=== PATIENT | female | born 1995 | race Caucasian/White ===

== ENCOUNTER 2021-03-29 10:58 | Emergency (ER) | payer MEDICAID ==
[~2021-03-29] VITALS: Ht 175.3 cm; Wt 79.5 kg
[~2021-03-29 10:58] MED LIST: GUAI1TBM19 PO; ONDA8TAB9 PO
[2021-03-29] MEDS ORDERED: ondansetron/PF 4mg/2ml inj IV ONE (11:15)
[2021-03-29] MEDS ORDERED: normal saline 1000ML IV soln IVB ONE (11:15)
[2021-03-29 11:16] VITALS: BP 127/89
[2021-03-29 12:21] LABS: URINE HCG NEGATIVE (NEG)
[2021-03-29 12:22] LABS: CLARITY,URINE SLIGHTLY CLOUDY (Clear); COLOR,URINE YELLOW (Yellow); UA COLLECTION TYPE CLN CATCH MIDSTREAM
[2021-03-29 12:23] LABS: GLUCOSE, URINE NEGATIVE (Neg); KETONES,URINE NEGATIVE (Neg); LEUKOCYTE ESTERASE ,URINE NEGATIVE (Neg); NITRITES, URINE NEGATIVE (Neg); OCCULT BLOOD,URINE NEGATIVE (Neg); PROTEIN,URINE NEGATIVE (Neg); UROBILINOGEN,URINE 0.2 E.U/dL (0.2-1.0)
[2021-03-29 12:32] LABS: MUCUS STRANDS MANY /LPF (Neg); SQUAMOUS EPITHELIAL CELL,UR MANY /LPF (FEW)
[2021-03-29 12:34] LABS: BACTERIA,URINE 1+ /HPF (Neg); RBC,URINE 0-2 /HPF (0-2); WBC,URINE 0-4 /HPF (0-4)
== END 2021-03-29 12:02 | disposition left against medical advice (07) ==
LOC: ER 10:59
DX: R10.10 Upper abdominal pain, unspecified (principal); Z53.21 Procedure and treatment not carried out due to patient leaving prior to being seen by health care provider
CPT/HCPCS: 81001; 81025

== ENCOUNTER 2023-12-23 01:47 | Emergency (ER) | payer MEDICAID ==
[~2023-12-23] VITALS: Ht 175.3 cm; Wt 82.0 kg
[2023-12-23 01:50] VITALS: PULSE 92
[2023-12-23] MEDS: ondansetron 4mg rapidly disintigrating tab PO ONE (03:25)
[2023-12-23 03:35] VITALS: BP 115/86; TEMP 98; O2SAT 98
[2023-12-23] MEDS: ketorolac trometh. 30mg/ml inj. IM ONE (03:43)
[2023-12-23 03:44] VITALS: RESP 15
[2023-12-23] MEDS: HYDROcodone/acetaminophen 5mg/325mg tablet PO ONE (03:44)
[2023-12-23] MEDS ORDERED: HYDR-3965 PO (04:41)
== END 2023-12-23 05:05 | disposition home or self-care (01) ==
LOC: ER 01:47
DX: M79.601 Pain in right arm (principal); F17.200 Nicotine dependence, unspecified, uncomplicated; Z88.8 Allergy status to other drugs, medicaments and biological substances; Z79.899 Other long term (current) drug therapy; W19.XXXA Unspecified fall, initial encounter; Y93.89 Activity, other specified; Y92.89 Other specified places as the place of occurrence of the external cause; Y99.8 Other external cause status
CPT/HCPCS: 73080; 73110; 96372; 99284; J1885